=== PATIENT | male | born 1930 | race Caucasian/White ===

== ENCOUNTER 2017-12-25 14:38 | Observation (INO) ==
[2017-12-26 14:36] VITALS: BP 110/60
== END 2017-12-26 16:08 | disposition home or self-care (01) ==
LOC: N.ED 14:38 → N.EDINP 14:38 → N.5E 18:46
PROVIDERS: ADMIT Internal Medicine; ATTEND Internal Medicine

== ENCOUNTER 2018-01-25 14:08 | Inpatient (IN) ==
[2018-01-25 14:42] LABS: Basophils # 0.1 10*3/uL (0.0-0.2); Basophils % 0.7 % (0.0-0.8); Eosinophils # 0.3 10*3/uL (0.0-0.87); Eosinophils % 2.9 % (0.00-10.9); Hematocrit 37.2 VOL% (42.0-52.0); Hemoglobin 12.3 GM/DL (14.0-18.0); Immature Granulocytes % 0.3 %; Immature Granulocytes Absolute 0.03 #; Lymphocytes # 1.2 10*3/uL (1.4-4.0); Lymphocytes % 12.2 % (21.2-54.2); Mean Corpuscular HGB Conc 33.1 GM/DL (32-36); Mean Corpuscular Hemoglobin 30 PG (27-34); Mean Corpuscular Volume 91.4 FL (87-102); Mean Platelet Volume 10.8 FL (9.6-12.0); Monocytes # 0.9 10*3/uL (0.11-0.8); Neutrophils # 7.3 10*3/uL (1.4-7.4); Neutrophils % 74.9 % (38.7-73.9); Platelet Count 156 T/CUMM (130-400); Red Blood Count 4.07 MC/CUMM (3.8-5.5); Red Cell Distribution Width 15.5 % (9.3-17.3); White Blood Count 9.7 T/CUMM (4-12)
[2018-01-25 15:01] LABS: Albumin 3.4 G/DL (3.4-5.0); Bilirubin,Total 0.7 MG/DL (0.2-1.0); Calcium 8.9 MG/DL (8.5-10.1); Osmolality,Calculated 285.4 MOS/KG (273-304); Total Protein 6.8 G/DL (6.4-8.3)
[2018-01-25] MEDS ORDERED: ONDANSETRON 4 MG/2 ML VIAL IV STA (15:05)
[2018-01-25] MEDS ORDERED: SODIUM CHLORIDE 0.9% 500 ML IV STA (15:05)
[2018-01-25] MEDS ORDERED: PANTOPRAZOLE 40 MG VIAL IV STA (15:05)
[2018-01-25] MEDS ORDERED: METOCLOPRAMIDE 10 MG/2 ML VIAL IV STA (15:05)
[2018-01-25] MEDS ORDERED: LEVOFLOXACIN INJ 750 MG in PREMIX 1 EACH IV STA (15:05)
[2018-01-25] MEDS ORDERED: METOCLOPRAMIDE 10 MG/2 ML VIAL ONE (15:11)
[2018-01-25] MEDS ORDERED: LEVOFLOXACIN INJ 150 ML IV ONE (15:11)
[2018-01-25] MEDS ORDERED: PANTOPRAZOLE 40 MG VIAL IV ONE ×2 (15:12→21:41)
[2018-01-25] MEDS ORDERED: ONDANSETRON 4 MG/2 ML VIAL ONE (15:12)
[2018-01-25 15:17] LABS: Bilirubin,Urine Negative (Negative); Blood, Urine Negative (Negative); Glucose,Urine (UA) Negative (Negative); Ketones,Urine Negative (Negative); Mucus,Urine Occasional /LPF (Occasional); Nitrite,Urine Negative (Negative); Protein,Urine 30 MG/DL; RBC,Urine 4 /HPF (0-4); Urine Color Amber (Yellow); Urine Specific Gravity 1.013 (1.001-1.035); WBC,Urine 1 /HPF (0-6)
[2018-01-25 15:19] LABS: Apearance,Urine Slightly Hazy (Clear)
[2018-01-25 16:07] LABS: PT Patient Result 10.4 SECS; Partial Thromboplastin Time 25.8 SECS (0-40)
[2018-01-25] MEDS ORDERED: ONDANSETRON 4 MG/2 ML VIAL IV PRN (21:41)
[2018-01-25] MEDS ORDERED: GLUCAGON 1 MG VIAL IM PRN (21:41)
[2018-01-25] MEDS ORDERED: PROMETHAZINE 25 MG/1 ML VIAL IM PRN (21:41)
[2018-01-25] MEDS ORDERED: DEXTROSE 50% 25 GM/50 ML VIAL IV PRN (21:41)
[2018-01-25] MEDS: SODIUM CHLORIDE 0.9% 1,000 ML IV SCH (22:06)
[2018-01-25] MEDS ORDERED: LEVOFLOXACIN INJ 750 MG in PREMIX 1 EACH IV ONE (23:00)
[2018-01-26] MEDS: INSULIN LISPRO 100 UNIT/ML SUBCUT SCH ×4 (00:15→20:00)
[2018-01-26] MEDS: PANTOPRAZOLE INJ 200 MG in SODIUM CHLORIDE 0.9% 250 ML IV SCH (01:05)
[2018-01-26 05:31] LABS: Albumin 2.7 G/DL (3.4-5.0); Calcium 7.7 MG/DL (8.5-10.1); Osmolality,Calculated 281.4 MOS/KG (273-304); Potassium 3.7 MMOL/L (3.5-5.1); Total Protein 5.3 G/DL (6.4-8.3)
[2018-01-26 05:50] LABS: Risk Ratio 1.92; Thyroid Stimulating Hormone 2.47 uIU/ml (0.358-3.74); VLDL CHOLESTEROL 16.2 MG/DL
[2018-01-26 08:07] LABS: Basophils # 0.1 10*3/uL (0.0-0.2); Basophils % 1.1 % (0.0-0.8); Eosinophils # 0.3 10*3/uL (0.0-0.87); Hemoglobin 10.1 GM/DL (14.0-18.0); Immature Granulocytes % 0.5 %; Immature Granulocytes Absolute 0.03 #; Lymphocytes # 1.3 10*3/uL (1.4-4.0); Lymphocytes % 18.9 % (21.2-54.2); Mean Corpuscular HGB Conc 32.6 GM/DL (32-36); Mean Corpuscular Hemoglobin 30 PG (27-34); Monocytes # 0.8 10*3/uL (0.11-0.8); Monocytes % 12.3 % (1.7-12.7); Neutrophils # 4.1 10*3/uL (1.4-7.4); Neutrophils % 62.2 % (38.7-73.9); Platelet Count 125 T/CUMM (130-400); Red Blood Count 3.37 MC/CUMM (3.8-5.5); Red Cell Distribution Width 15.6 % (9.3-17.3); White Blood Count 6.6 T/CUMM (4-12)
[2018-01-26] MEDS: SODIUM CHLORIDE 0.9% 1,000 ML IV SCH (13:02)
[2018-01-26] MEDS: METOPROLOL SUCCINATE XL 25 MG TABLET PO SCH (16:43)
[2018-01-26] MEDS: hydroCHLOROthiazide 25 MG TABLET PO SCH (16:43)
[2018-01-26] MEDS: PANTOPRAZOLE 40 MG TABLET PO SCH (20:03)
[2018-01-27] MEDS: INSULIN LISPRO 100 UNIT/ML SUBCUT SCH ×4 (00:15→18:26)
[2018-01-27] MEDS: SODIUM CHLORIDE 0.9% 1,000 ML IV SCH ×2 (02:30→16:09)
[2018-01-27] MEDS: PANTOPRAZOLE 40 MG TABLET PO SCH ×2 (06:29→19:21)
[2018-01-27] MEDS: PANTOPRAZOLE INJ 200 MG in SODIUM CHLORIDE 0.9% 250 ML IV SCH (09:43)
[2018-01-27] MEDS: hydroCHLOROthiazide 25 MG TABLET PO SCH (12:07)
[2018-01-27] MEDS: METOPROLOL SUCCINATE XL 25 MG TABLET PO SCH (12:07)
[2018-01-27] MEDS: LEVOTHYROXINE 75 MCG TABLET PO SCH (12:07)
[2018-01-28 03:40] LABS: Alanine Aminotransferase 71 U/L (16-61); Albumin 2.4 G/DL (3.4-5.0); Alkaline Phosphatase 297 U/L (45-117); Aspartate Amino Transferase 51 U/L (0-37); Bilirubin,Indirect 0.2 MG/DL (0.0-1.0); Bilirubin,Total < 0.39 MG/DL (0.2-1.0); Total Protein 5.2 G/DL (6.4-8.3)
[2018-01-28] MEDS: INSULIN LISPRO 100 UNIT/ML SUBCUT SCH ×4 (05:14→19:02)
[2018-01-28] MEDS: SODIUM CHLORIDE 0.9% 1,000 ML IV SCH (06:07)
[2018-01-28] MEDS: LEVOTHYROXINE 75 MCG TABLET PO SCH ×2 (06:08→07:01)
[2018-01-28] MEDS: BISACODYL 5 MG TABLET PO SCH ×3 (08:50→21:00)
[2018-01-28] MEDS: PANTOPRAZOLE 40 MG TABLET PO SCH ×3 (08:50→19:06)
[2018-01-28] MEDS: hydroCHLOROthiazide 25 MG TABLET PO SCH (08:56)
[2018-01-28] MEDS: METOPROLOL SUCCINATE XL 25 MG TABLET PO SCH (08:56)
[2018-01-28] MEDS ORDERED: BISMUTH SUBSALICYLATE 30 ML/524 MG 240 ML/BOTTLE PO PRN (14:10)
[2018-01-28 14:23] LABS: Hepatitis A Ab IgM Quant 0.26 Index; Hepatitis A Ab IgM Result Negative (Negative); Hepatitis B Core IgM Quant < 0.05 Index; Hepatitis B Core IgM Result Negative (Negative); Hepatitis B Surface Ag Quant 0.37 Index; Hepatitis B Surface Ag Result Negative (Negative); Hepatitis C Virus Ab Quant 0.02 Index; Hepatitis C Virus Ab Result Negative (Negative)
[2018-01-28] MEDS ORDERED: POLYETHYLENE GLYCOL POWDER 255 GM BOTTLE PO ONE (18:00)
[2018-01-28] MEDS: EZETIMIBE 10 MG TABLET PO SCH (20:59)
[2018-01-28] MEDS ORDERED: MAGNESIUM CITRATE 300 ML BOTTLE PO ONE (21:00)
[2018-01-29] MEDS: INSULIN LISPRO 100 UNIT/ML SUBCUT SCH ×4 (01:13→18:58)
[2018-01-29] MEDS: BISACODYL 5 MG TABLET PO SCH (01:13)
[2018-01-29 02:43] LABS: Basophils # 0.1 10*3/uL (0.0-0.2); Basophils % 0.5 % (0.0-0.8); Eosinophils # 0.1 10*3/uL (0.0-0.87); Eosinophils % 0.5 % (0.00-10.9); Hematocrit 33.1 VOL% (42.0-52.0); Hemoglobin 11.3 GM/DL (14.0-18.0); Immature Granulocytes % 0.3 %; Immature Granulocytes Absolute 0.03 #; Lymphocytes # 0.9 10*3/uL (1.4-4.0); Lymphocytes % 9.4 % (21.2-54.2); Mean Corpuscular HGB Conc 34.1 GM/DL (32-36); Mean Corpuscular Hemoglobin 30 PG (27-34); Mean Platelet Volume 11.1 FL (9.6-12.0); Monocytes # 0.7 10*3/uL (0.11-0.8); Neutrophils # 7.9 10*3/uL (1.4-7.4); Neutrophils % 82.3 % (38.7-73.9); Platelet Count 149 T/CUMM (130-400); Red Blood Count 3.76 MC/CUMM (3.8-5.5); Red Cell Distribution Width 15.5 % (9.3-17.3)
[2018-01-29 02:49] LABS: White Blood Count 9.6 T/CUMM (4-12)
[2018-01-29 03:19] LABS: Calcium 8.3 MG/DL (8.5-10.1); Osmolality,Calculated 285.4 MOS/KG (273-304); Potassium 3.5 MMOL/L (3.5-5.1)
[2018-01-29 04:48] LABS: Albumin 2.6 G/DL (3.4-5.0); Bilirubin,Direct 0.41 MG/DL (0.0-0.20); Bilirubin,Indirect 0.6 MG/DL (0.0-1.0); Total Protein 5.5 G/DL (6.4-8.3)
[2018-01-29] MEDS ORDERED: NITROGLYCERIN SL 0.4 MG TABLET SL PRN (07:02)
[2018-01-29] MEDS ORDERED: ASPIRIN CHEW 81 MG TABLET PO ONE (07:02)
[2018-01-29] MEDS: MORPHINE 4 MG/1 ML VIAL IV PRN ×2 (07:21→17:03)
[2018-01-29] MEDS ORDERED: ALUM/MAG/SIMETH/LIDO VISC 1:1 30 ML BOTTLE PO ONE (08:00)
[2018-01-29] MEDS: SODIUM CHLORIDE 0.9% 1,000 ML IV SCH ×2 (08:23→20:40)
[2018-01-29] MEDS: PANTOPRAZOLE 40 MG TABLET PO SCH ×2 (08:30→19:03)
[2018-01-29] MEDS: LEVOTHYROXINE 75 MCG TABLET PO SCH (08:31)
[2018-01-29] MEDS: hydroCHLOROthiazide 25 MG TABLET PO SCH (08:38)
[2018-01-29] MEDS: METOPROLOL SUCCINATE XL 25 MG TABLET PO SCH (08:42)
[2018-01-29] MEDS ORDERED: POTASSIUM CHLORIDE RIDER 10 MEQ in PREMIX 1 EACH IV PRN (09:03)
[2018-01-29] MEDS ORDERED: DIAZEPAM 5 MG TABLET PO ONE (09:03)
[2018-01-29] MEDS ORDERED: MAGNESIUM SULF RIDER 2 GM in PREMIX 1 EACH IV PRN (09:03)
[2018-01-29] MEDS ORDERED: diphenhydrAMINE CAP 25 MG CAPSULE PO ONE (09:03)
[2018-01-29] MEDS ORDERED: MIDAZOLAM 2 MG/2 ML VIAL ONE ×2 (11:02→12:24)
[2018-01-29] MEDS ORDERED: LIDOCAINE 1% 20 ML VIAL ONE (11:02)
[2018-01-29] MEDS ORDERED: fentaNYL 100 MCG/2 ML VIAL ONE (11:02)
[2018-01-29] MEDS ORDERED: ENOXAPARIN 60 MG/0.6 ML SYRINGE ONE (11:58)
[2018-01-29] MEDS ORDERED: TIROFIBAN 5,000 MCG/100 ML PREMIX IV ONE (12:00)
[2018-01-29 12:05] LABS: CKMB % 9.7 %
[2018-01-29] MEDS ORDERED: TIROFIBAN 5,000 MCG/100 ML PREMIX IV SCH (12:07)
[2018-01-29] MEDS ORDERED: HYDROmorphone 2 MG/1 ML VIAL ONE (12:36)
[2018-01-29] MEDS ORDERED: TICAGRELOR 90 MG TABLET ONE (12:38)
[2018-01-29] MEDS ORDERED: ACETAMINOPHEN 325 MG TABLET PO PRN (12:46)
[2018-01-29] MEDS ORDERED: MORPHINE 10 MG/1 ML VIAL ONE (17:00)
[2018-01-29] MEDS ORDERED: HYDROmorphone 2 MG/1 ML VIAL IV PRN (18:27)
[2018-01-29] MEDS ORDERED: KETOROLAC 30 MG/1 ML VIAL IV ONE (18:27)
[2018-01-29] MEDS: TICAGRELOR 90 MG TABLET PO SCH (21:08)
[2018-01-29] MEDS: EZETIMIBE 10 MG TABLET PO SCH (21:08)
[2018-01-30] MEDS: INSULIN LISPRO 100 UNIT/ML SUBCUT SCH ×4 (01:03→18:02)
[2018-01-30 03:53] LABS: Basophils # 0.1 10*3/uL (0.0-0.2); Basophils % 0.5 % (0.0-0.8); Eosinophils # 0.1 10*3/uL (0.0-0.87); Eosinophils % 0.8 % (0.00-10.9); Hematocrit 31.4 VOL% (42.0-52.0); Hemoglobin 10.4 GM/DL (14.0-18.0); Immature Granulocytes % 0.6 %; Immature Granulocytes Absolute 0.07 #; Lymphocytes % 8.8 % (21.2-54.2); Mean Corpuscular HGB Conc 33.1 GM/DL (32-36); Mean Corpuscular Hemoglobin 29 PG (27-34); Mean Platelet Volume 11.5 FL (9.6-12.0); Monocytes # 1.6 10*3/uL (0.11-0.8); Monocytes % 13.1 % (1.7-12.7); Neutrophils # 9.1 10*3/uL (1.4-7.4); Neutrophils % 76.2 % (38.7-73.9); Platelet Count 143 T/CUMM (130-400); Red Blood Count 3.57 MC/CUMM (3.8-5.5); Red Cell Distribution Width 15.8 % (9.3-17.3); White Blood Count 11.9 T/CUMM (4-12)
[2018-01-30 04:29] LABS: CKMB % 9.3 %; Calcium 8.1 MG/DL (8.5-10.1); Osmolality,Calculated 284.5 MOS/KG (273-304); Potassium 3.7 MMOL/L (3.5-5.1)
[2018-01-30] MEDS: PANTOPRAZOLE 40 MG TABLET PO SCH ×2 (06:28→18:03)
[2018-01-30] MEDS: LEVOTHYROXINE 75 MCG TABLET PO SCH (06:28)
[2018-01-30 10:06] LABS: AFP Tumor < 1.3 NG/ML (0-8); Carcinoembryonic Antigen < 0.5 NG/ML (0.0-5.0)
[2018-01-30] MEDS: hydroCHLOROthiazide 25 MG TABLET PO SCH (10:52)
[2018-01-30] MEDS: ASPIRIN EC 81 MG TABLET PO SCH (10:52)
[2018-01-30] MEDS: TICAGRELOR 90 MG TABLET PO SCH ×2 (10:52→21:17)
[2018-01-30] MEDS: METOPROLOL SUCCINATE XL 25 MG TABLET PO SCH (10:52)
[2018-01-30] MEDS: ALBUTEROL/IPRATROPIUM 3 ML NEB RESP TX PRN (20:17)
[2018-01-30] MEDS ORDERED: FUROSEMIDE 40 MG/4 ML VIAL IV STA (20:34)
[2018-01-30] MEDS: EZETIMIBE 10 MG TABLET PO SCH (21:17)
[2018-01-30] MEDS: SODIUM CHLORIDE 0.9% 1,000 ML IV SCH (22:42)
[2018-01-31] MEDS: INSULIN LISPRO 100 UNIT/ML SUBCUT SCH ×4 (00:36→18:14)
[2018-01-31] MEDS: ALBUTEROL/IPRATROPIUM 3 ML NEB RESP TX PRN (02:20)
[2018-01-31 04:22] LABS: Basophils % 0.2 % (0.0-0.8); Eosinophils # 0.1 10*3/uL (0.0-0.87); Eosinophils % 0.6 % (0.00-10.9); Hematocrit 31.9 VOL% (42.0-52.0); Hemoglobin 10.9 GM/DL (14.0-18.0); Immature Granulocytes % 0.5 %; Immature Granulocytes Absolute 0.06 #; Lymphocytes # 1.4 10*3/uL (1.4-4.0); Lymphocytes % 10.5 % (21.2-54.2); Mean Corpuscular HGB Conc 34.2 GM/DL (32-36); Mean Corpuscular Hemoglobin 30 PG (27-34); Mean Corpuscular Volume 87.2 FL (87-102); Mean Platelet Volume 11.5 FL (9.6-12.0); Monocytes # 1.2 10*3/uL (0.11-0.8); Monocytes % 8.9 % (1.7-12.7); Neutrophils # 10.5 10*3/uL (1.4-7.4); Neutrophils % 79.3 % (38.7-73.9); Platelet Count 156 T/CUMM (130-400); Red Blood Count 3.66 MC/CUMM (3.8-5.5); Red Cell Distribution Width 15.9 % (9.3-17.3); White Blood Count 13.2 T/CUMM (4-12)
[2018-01-31 05:10] LABS: CKMB % 5.4 %; Calcium 8.5 MG/DL (8.5-10.1); Osmolality,Calculated 287.5 MOS/KG (273-304); Potassium 3.3 MMOL/L (3.5-5.1)
[2018-01-31] MEDS: PANTOPRAZOLE 40 MG TABLET PO SCH ×2 (06:18→21:13)
[2018-01-31] MEDS: LEVOTHYROXINE 75 MCG TABLET PO SCH (06:18)
[2018-01-31] MEDS: ASPIRIN EC 81 MG TABLET PO SCH (10:58)
[2018-01-31] MEDS: TICAGRELOR 90 MG TABLET PO SCH ×2 (10:58→21:13)
[2018-01-31] MEDS: METOPROLOL SUCCINATE XL 25 MG TABLET PO SCH (10:58)
[2018-01-31] MEDS: FUROSEMIDE 40 MG/4 ML VIAL IV SCH ×2 (10:59→16:24)
[2018-01-31] MEDS: ALBUTEROL/IPRATROPIUM 3 ML NEB RESP TX SCH ×4 (11:03→23:02)
[2018-01-31] MEDS: LEVOFLOXACIN INJ 750 MG in PREMIX 1 EACH IV SCH (11:04)
[2018-01-31] MEDS: POTASSIUM CHLORIDE 20 MEQ TABLET PO SCH (13:11)
[2018-01-31] MEDS: EZETIMIBE 10 MG TABLET PO SCH (21:13)
[2018-02-01] MEDS: INSULIN LISPRO 100 UNIT/ML SUBCUT SCH ×4 (00:25→18:21)
[2018-02-01] MEDS: ALBUTEROL/IPRATROPIUM 3 ML NEB RESP TX SCH ×2 (03:02→08:30)
[2018-02-01 04:42] LABS: Basophils % 0.4 % (0.0-0.8); Eosinophils # 0.3 10*3/uL (0.0-0.87); Eosinophils % 2.7 % (0.00-10.9); Hematocrit 32.1 VOL% (42.0-52.0); Hemoglobin 10.8 GM/DL (14.0-18.0); Immature Granulocytes % 0.6 %; Immature Granulocytes Absolute 0.07 #; Lymphocytes # 1.2 10*3/uL (1.4-4.0); Lymphocytes % 10.6 % (21.2-54.2); Mean Corpuscular HGB Conc 33.6 GM/DL (32-36); Mean Corpuscular Hemoglobin 30 PG (27-34); Mean Corpuscular Volume 88.4 FL (87-102); Mean Platelet Volume 10.9 FL (9.6-12.0); Monocytes # 1.2 10*3/uL (0.11-0.8); Monocytes % 10.5 % (1.7-12.7); Neutrophils # 8.5 10*3/uL (1.4-7.4); Neutrophils % 75.2 % (38.7-73.9); Platelet Count 165 T/CUMM (130-400); Red Blood Count 3.63 MC/CUMM (3.8-5.5); Red Cell Distribution Width 15.9 % (9.3-17.3); White Blood Count 11.3 T/CUMM (4-12)
[2018-02-01 05:05] LABS: Calcium 8.3 MG/DL (8.5-10.1); Osmolality,Calculated 296.3 MOS/KG (273-304); Potassium 3.2 MMOL/L (3.5-5.1)
[2018-02-01] MEDS: PANTOPRAZOLE 40 MG TABLET PO SCH ×2 (06:18→20:10)
[2018-02-01] MEDS: LEVOTHYROXINE 75 MCG TABLET PO SCH (06:18)
[2018-02-01] MEDS: ASPIRIN EC 81 MG TABLET PO SCH (10:10)
[2018-02-01] MEDS: POTASSIUM CHLORIDE 20 MEQ TABLET PO SCH (10:10)
[2018-02-01] MEDS: TICAGRELOR 90 MG TABLET PO SCH ×2 (10:10→20:10)
[2018-02-01] MEDS: METOPROLOL SUCCINATE XL 25 MG TABLET PO SCH (10:11)
[2018-02-01] MEDS: POTASSIUM CHLORIDE 20 MEQ TABLET PO PRN (10:11)
[2018-02-01] MEDS: amLODIPine 10 MG TABLET PO SCH (10:12)
[2018-02-01] MEDS: FUROSEMIDE 40 MG/4 ML VIAL IV SCH (10:19)
[2018-02-01] MEDS ORDERED: ALBUTEROL/IPRATROPIUM 3 ML NEB RESP TX PRN (10:48)
[2018-02-01] MEDS ORDERED: BENZOCAINE 10% ORAL GEL 7 GM TUBE TOP PRN (13:57)
[2018-02-01] MEDS: EZETIMIBE 10 MG TABLET PO SCH (20:10)
[2018-02-02] MEDS: INSULIN LISPRO 100 UNIT/ML SUBCUT SCH ×4 (00:48→17:48)
[2018-02-02 05:24] LABS: Basophils # 0.1 10*3/uL (0.0-0.2); Basophils % 0.7 % (0.0-0.8); Eosinophils # 0.6 10*3/uL (0.0-0.87); Eosinophils % 5.7 % (0.00-10.9); Hemoglobin 11.7 GM/DL (14.0-18.0); Immature Granulocytes % 0.8 %; Immature Granulocytes Absolute 0.08 #; Lymphocytes # 0.9 10*3/uL (1.4-4.0); Mean Corpuscular HGB Conc 34.4 GM/DL (32-36); Mean Corpuscular Hemoglobin 30 PG (27-34); Mean Corpuscular Volume 86.5 FL (87-102); Mean Platelet Volume 11.5 FL (9.6-12.0); Monocytes # 1.3 10*3/uL (0.11-0.8); Monocytes % 13.1 % (1.7-12.7); Neutrophils # 7.1 10*3/uL (1.4-7.4); Neutrophils % 70.7 % (38.7-73.9); Platelet Count 163 T/CUMM (130-400); Red Blood Count 3.93 MC/CUMM (3.8-5.5); Red Cell Distribution Width 15.7 % (9.3-17.3)
[2018-02-02] MEDS: LEVOTHYROXINE 75 MCG TABLET PO SCH (06:06)
[2018-02-02] MEDS: PANTOPRAZOLE 40 MG TABLET PO SCH ×2 (06:06→18:23)
[2018-02-02 06:40] LABS: Calcium 8.4 MG/DL (8.5-10.1); Potassium 3.4 MMOL/L (3.5-5.1)
[2018-02-02] MEDS: POTASSIUM CHLORIDE 20 MEQ TABLET PO PRN ×3 (06:49→15:59)
[2018-02-02] MEDS: TICAGRELOR 90 MG TABLET PO SCH ×2 (09:03→20:46)
[2018-02-02] MEDS: POTASSIUM CHLORIDE 20 MEQ TABLET PO SCH (09:03)
[2018-02-02] MEDS: amLODIPine 10 MG TABLET PO SCH (09:03)
[2018-02-02] MEDS: METOPROLOL SUCCINATE XL 25 MG TABLET PO SCH (09:03)
[2018-02-02] MEDS: ASPIRIN EC 81 MG TABLET PO SCH (09:04)
[2018-02-02] MEDS: FUROSEMIDE 20 MG TABLET PO SCH (09:04)
[2018-02-02] MEDS: LEVOFLOXACIN INJ 750 MG in PREMIX 1 EACH IV SCH (09:37)
[2018-02-02] MEDS: EZETIMIBE 10 MG TABLET PO SCH (20:46)
[2018-02-03] MEDS: INSULIN LISPRO 100 UNIT/ML SUBCUT SCH ×3 (00:33→11:42)
[2018-02-03 04:16] LABS: Basophils # 0.1 10*3/uL (0.0-0.2); Basophils % 0.7 % (0.0-0.8); Eosinophils # 0.6 10*3/uL (0.0-0.87); Eosinophils % 7.7 % (0.00-10.9); Hematocrit 30.9 VOL% (42.0-52.0); Hemoglobin 10.3 GM/DL (14.0-18.0); Immature Granulocytes % 0.7 %; Immature Granulocytes Absolute 0.06 #; Lymphocytes # 0.8 10*3/uL (1.4-4.0); Mean Corpuscular HGB Conc 33.3 GM/DL (32-36); Mean Corpuscular Hemoglobin 29 PG (27-34); Mean Platelet Volume 10.9 FL (9.6-12.0); Monocytes % 12.1 % (1.7-12.7); Neutrophils # 5.5 10*3/uL (1.4-7.4); Neutrophils % 68.8 % (38.7-73.9); Platelet Count 204 T/CUMM (130-400); Red Blood Count 3.55 MC/CUMM (3.8-5.5); Red Cell Distribution Width 15.7 % (9.3-17.3)
[2018-02-03 04:49] LABS: Calcium 8.7 MG/DL (8.5-10.1); Osmolality,Calculated 300.8 MOS/KG (273-304); Potassium 3.9 MMOL/L (3.5-5.1)
[2018-02-03] MEDS: LEVOTHYROXINE 75 MCG TABLET PO SCH (06:27)
[2018-02-03] MEDS: PANTOPRAZOLE 40 MG TABLET PO SCH (06:27)
[2018-02-03 08:28] VITALS: BP 109/59
[2018-02-03] MEDS: ASPIRIN EC 81 MG TABLET PO SCH (09:11)
[2018-02-03] MEDS: POTASSIUM CHLORIDE 20 MEQ TABLET PO SCH (09:11)
[2018-02-03] MEDS: METOPROLOL SUCCINATE XL 25 MG TABLET PO SCH (09:11)
[2018-02-03] MEDS: amLODIPine 10 MG TABLET PO SCH (09:11)
[2018-02-03] MEDS: TICAGRELOR 90 MG TABLET PO SCH (09:11)
[2018-02-03] MEDS: FUROSEMIDE 20 MG TABLET PO SCH (09:12)
[2018-02-03] MEDS ORDERED: CIPROFLOXACIN 500 MG TABLET PO ONE (12:23)
== END 2018-02-03 13:51 | disposition home health service (06) | DRG 246 ==
LOC: N.ED 14:08 → SUATTDRO 20:01 → N.EDINP 20:01 → N.4E 21:40 → N.TELES 01-29 18:27
PROVIDERS: ADMIT Internal Medicine; ATTEND Internal Medicine
PROC: CLCCHCL (ICD-10-PCS; 2018-01-29 11:45)

== ENCOUNTER 2018-02-05 18:03 | Inpatient (IN) ==
[2018-02-05] MEDS ORDERED: ASPIRIN 325 MG TABLET PO STA (18:21)
[2018-02-05] MEDS ORDERED: NITROGLYCERIN 2% OINT 1 INCH/GM PACK TOP STA (18:21)
[2018-02-05] MEDS ORDERED: FUROSEMIDE 100 MG/10 ML VIAL IV STA (18:21)
[2018-02-05] MEDS ORDERED: ALBUTEROL/IPRATROPIUM 3 ML NEB RESP TX STA (18:21)
[2018-02-05 18:36] LABS: Basophils # 0.1 10*3/uL (0.0-0.2); Basophils % 0.7 % (0.0-0.8); Eosinophils # 0.4 10*3/uL (0.0-0.87); Eosinophils % 2.7 % (0.00-10.9); Hematocrit 37.6 VOL% (42.0-52.0); Hemoglobin 12.2 GM/DL (14.0-18.0); Immature Granulocytes % 0.5 %; Immature Granulocytes Absolute 0.09 #; Lymphocytes # 1.7 10*3/uL (1.4-4.0); Lymphocytes % 10.1 % (21.2-54.2); Mean Corpuscular HGB Conc 32.4 GM/DL (32-36); Mean Corpuscular Hemoglobin 29 PG (27-34); Mean Platelet Volume 10.3 FL (9.6-12.0); Monocytes # 1.3 10*3/uL (0.11-0.8); Monocytes % 7.6 % (1.7-12.7); Neutrophils # 12.8 10*3/uL (1.4-7.4); Neutrophils % 78.4 % (38.7-73.9); Platelet Count 282 T/CUMM (130-400); Red Blood Count 4.18 MC/CUMM (3.8-5.5); Red Cell Distribution Width 15.7 % (9.3-17.3); White Blood Count 16.4 T/CUMM (4-12)
[2018-02-05] MEDS ORDERED: LEVOFLOXACIN INJ 750 MG in PREMIX 1 EACH IV STA (18:45)
[2018-02-05 18:59] LABS: Albumin 3.1 G/DL (3.4-5.0); Bilirubin,Total 0.4 MG/DL (0.2-1.0); Osmolality,Calculated 302.3 MOS/KG (273-304); Potassium 4.1 MMOL/L (3.5-5.1); Total Protein 6.9 G/DL (6.4-8.3)
[2018-02-05 19:34] LABS: Apearance,Urine CLOUDY (Clear); Bacteria,Urine Occasional /HPF (Few); Bilirubin,Urine Negative (Negative); Blood, Urine Negative (Negative); Glucose,Urine (UA) Negative (Negative); Ketones,Urine Negative (Negative); Nitrite,Urine Negative (Negative); Protein,Urine Negative; RBC,Urine 1 /HPF (0-4); Urine Color Amber (Yellow); Urine Specific Gravity 1.011 (1.001-1.035); Urine Urobilinogen < 2.0 EU/DL (0.2-1.0); WBC,Urine 8 /HPF (0-6)
[2018-02-05 19:35] LABS: Troponin I Only 0.446 NG/ML (0.00-0.045)
[2018-02-05 20:07] LABS: Partial Thromboplastin Time 25.4 SECS (0-40)
[2018-02-05 20:28] LABS: PT Patient Result 10.6 SECS
[2018-02-05] MEDS ORDERED: DOCUSATE SODIUM 100 MG CAPSULE PO PRN (20:47)
[2018-02-05] MEDS ORDERED: ACETAMINOPHEN 325 MG TABLET PO PRN (20:47)
[2018-02-05] MEDS ORDERED: ONDANSETRON 4 MG/2 ML VIAL IV PRN (20:47)
[2018-02-05] MEDS ORDERED: DEXTROSE 50% 25 GM/50 ML VIAL IV PRN (20:47)
[2018-02-05] MEDS ORDERED: GLUCAGON 1 MG VIAL IM PRN (20:47)
[2018-02-05] MEDS ORDERED: diphenhydrAMINE CAP 25 MG CAPSULE PO PRN (20:47)
[2018-02-05] MEDS ORDERED: LACTULOSE 20 GM/30 ML UDCUP PO PRN (20:47)
[2018-02-05] MEDS ORDERED: BISACODYL 5 MG TABLET PO PRN (20:47)
[2018-02-05] MEDS ORDERED: traZODone 50 MG TABLET PO PRN (20:47)
[2018-02-05] MEDS ORDERED: ENOXAPARIN 40 MG/0.4 ML SYRINGE SUBCUT SCH (21:00)
[2018-02-05] MEDS ORDERED: NITROGLYCERIN SL 0.4 MG TABLET SL PRN (21:04)
[2018-02-06 03:06] LABS: Basophils # 0.1 10*3/uL (0.0-0.2); Basophils % 0.5 % (0.0-0.8); Eosinophils # 0.2 10*3/uL (0.0-0.87); Eosinophils % 1.4 % (0.00-10.9); Hematocrit 30.5 VOL% (42.0-52.0); Hemoglobin 9.8 GM/DL (14.0-18.0); Immature Granulocytes % 0.7 %; Immature Granulocytes Absolute 0.09 #; Mean Corpuscular HGB Conc 32.1 GM/DL (32-36); Mean Corpuscular Hemoglobin 29 PG (27-34); Mean Platelet Volume 10.3 FL (9.6-12.0); Monocytes # 1.1 10*3/uL (0.11-0.8); Monocytes % 8.9 % (1.7-12.7); Neutrophils # 10.4 10*3/uL (1.4-7.4); Neutrophils % 80.5 % (38.7-73.9); Platelet Count 215 T/CUMM (130-400); Red Blood Count 3.35 MC/CUMM (3.8-5.5); Red Cell Distribution Width 15.4 % (9.3-17.3); White Blood Count 12.9 T/CUMM (4-12)
[2018-02-06 03:31] LABS: Osmolality,Calculated 299.7 MOS/KG (273-304); Potassium 3.6 MMOL/L (3.5-5.1)
[2018-02-06] MEDS: LEVOTHYROXINE 75 MCG TABLET PO SCH (06:25)
[2018-02-06] MEDS: PANTOPRAZOLE 40 MG TABLET PO SCH ×2 (06:30→18:16)
[2018-02-06] MEDS ORDERED: IMATINIB MESYLATE 200 MG PO SCH (08:00)
[2018-02-06] MEDS: METOPROLOL SUCCINATE XL 25 MG TABLET PO SCH (09:06)
[2018-02-06] MEDS: ENOXAPARIN 30 MG/0.3 ML SYRINGE SUBCUT SCH (09:07)
[2018-02-06] MEDS: ASPIRIN EC 81 MG TABLET PO SCH (09:07)
[2018-02-06] MEDS: EZETIMIBE 10 MG TABLET PO SCH (09:07)
[2018-02-06] MEDS: TICAGRELOR 90 MG TABLET PO SCH ×2 (09:07→21:37)
[2018-02-06] MEDS ORDERED: FUROSEMIDE 40 MG/4 ML VIAL ONE (09:11)
[2018-02-06] MEDS: POLYCARBOPHIL 625 MG TABLET PO SCH (09:13)
[2018-02-06] MEDS: LEVOFLOXACIN 500 MG TABLET PO SCH (14:07)
[2018-02-06] MEDS: POLYETHYLENE GLYCOL POWDER 17 GM PACK PO SCH (21:37)
[2018-02-07 06:15] LABS: Basophils # 0.1 10*3/uL (0.0-0.2); Basophils % 1.1 % (0.0-0.8); Eosinophils # 0.5 10*3/uL (0.0-0.87); Eosinophils % 5.5 % (0.00-10.9); Hemoglobin 10.7 GM/DL (14.0-18.0); Immature Granulocytes % 0.8 %; Immature Granulocytes Absolute 0.07 #; Lymphocytes # 0.9 10*3/uL (1.4-4.0); Lymphocytes % 11.3 % (21.2-54.2); Mean Corpuscular HGB Conc 33.4 GM/DL (32-36); Mean Corpuscular Hemoglobin 30 PG (27-34); Mean Corpuscular Volume 88.9 FL (87-102); Mean Platelet Volume 10.4 FL (9.6-12.0); Monocytes % 11.4 % (1.7-12.7); Neutrophils # 5.8 10*3/uL (1.4-7.4); Neutrophils % 69.9 % (38.7-73.9); Platelet Count 215 T/CUMM (130-400); Red Cell Distribution Width 15.2 % (9.3-17.3); White Blood Count 8.3 T/CUMM (4-12)
[2018-02-07 06:44] LABS: Calcium 8.4 MG/DL (8.5-10.1); Osmolality,Calculated 294.7 MOS/KG (273-304); Potassium 3.4 MMOL/L (3.5-5.1)
[2018-02-07] MEDS: LEVOTHYROXINE 75 MCG TABLET PO SCH (06:54)
[2018-02-07] MEDS: PANTOPRAZOLE 40 MG TABLET PO SCH ×2 (06:55→18:59)
[2018-02-07] MEDS: LEVOFLOXACIN 500 MG TABLET PO SCH (08:57)
[2018-02-07] MEDS: POLYCARBOPHIL 625 MG TABLET PO SCH (08:57)
[2018-02-07] MEDS: EZETIMIBE 10 MG TABLET PO SCH (08:57)
[2018-02-07] MEDS: METOPROLOL SUCCINATE XL 25 MG TABLET PO SCH (08:57)
[2018-02-07] MEDS: ASPIRIN EC 81 MG TABLET PO SCH (08:57)
[2018-02-07] MEDS: TICAGRELOR 90 MG TABLET PO SCH ×2 (08:57→21:15)
[2018-02-07] MEDS: ENOXAPARIN 30 MG/0.3 ML SYRINGE SUBCUT SCH (08:58)
[2018-02-07] MEDS: FUROSEMIDE 40 MG/4 ML VIAL IV SCH (08:58)
[2018-02-07 09:23] LABS: % Iron Saturation 9.5 % (18-50)
[2018-02-07] MEDS ORDERED: IRON SUCROSE 200 MG in SODIUM CHLORIDE 0.9% 100 ML IV ONE (10:20)
[2018-02-07] MEDS ORDERED: SODIUM CHLORIDE 0.9% 1,000 ML IV PRN (10:22)
[2018-02-07] MEDS: POLYETHYLENE GLYCOL POWDER 17 GM PACK PO SCH (21:15)
[2018-02-08 04:18] LABS: Basophils # 0.1 10*3/uL (0.0-0.2); Eosinophils # 0.4 10*3/uL (0.0-0.87); Hematocrit 35.2 VOL% (42.0-52.0); Hemoglobin 11.6 GM/DL (14.0-18.0); Immature Granulocytes % 0.8 %; Immature Granulocytes Absolute 0.07 #; Lymphocytes # 0.9 10*3/uL (1.4-4.0); Lymphocytes % 9.8 % (21.2-54.2); Mean Corpuscular Hemoglobin 29 PG (27-34); Mean Corpuscular Volume 88.7 FL (87-102); Mean Platelet Volume 10.2 FL (9.6-12.0); Monocytes # 1.1 10*3/uL (0.11-0.8); Monocytes % 12.1 % (1.7-12.7); Neutrophils # 6.3 10*3/uL (1.4-7.4); Neutrophils % 71.3 % (38.7-73.9); Platelet Count 219 T/CUMM (130-400); Red Blood Count 3.97 MC/CUMM (3.8-5.5); Red Cell Distribution Width 14.8 % (9.3-17.3); White Blood Count 8.9 T/CUMM (4-12)
[2018-02-08 04:53] LABS: Calcium 8.2 MG/DL (8.5-10.1); Osmolality,Calculated 294.7 MOS/KG (273-304); Potassium 3.7 MMOL/L (3.5-5.1)
[2018-02-08] MEDS: LEVOTHYROXINE 75 MCG TABLET PO SCH (06:31)
[2018-02-08] MEDS: PANTOPRAZOLE 40 MG TABLET PO SCH ×2 (06:31→20:10)
[2018-02-08] MEDS: POTASSIUM CHLORIDE 20 MEQ TABLET PO PRN (06:39)
[2018-02-08] MEDS: METOPROLOL SUCCINATE XL 25 MG TABLET PO SCH (08:57)
[2018-02-08] MEDS: EZETIMIBE 10 MG TABLET PO SCH (08:57)
[2018-02-08] MEDS: POLYCARBOPHIL 625 MG TABLET PO SCH (08:57)
[2018-02-08] MEDS: TICAGRELOR 90 MG TABLET PO SCH ×2 (08:58→20:10)
[2018-02-08] MEDS: FUROSEMIDE 40 MG/4 ML VIAL IV SCH (08:59)
[2018-02-08] MEDS: LEVOFLOXACIN 500 MG TABLET PO SCH (08:59)
[2018-02-08] MEDS: ASPIRIN EC 81 MG TABLET PO SCH (08:59)
[2018-02-08] MEDS: ENOXAPARIN 30 MG/0.3 ML SYRINGE SUBCUT SCH (08:59)
[2018-02-08] MEDS: POLYETHYLENE GLYCOL POWDER 17 GM PACK PO SCH (20:10)
[2018-02-08] MEDS: DOXYCYCLINE HYCLATE 100 MG CAPSULE PO SCH (20:15)
[2018-02-09 04:29] LABS: Basophils # 0.1 10*3/uL (0.0-0.2); Basophils % 0.7 % (0.0-0.8); Eosinophils # 0.4 10*3/uL (0.0-0.87); Hematocrit 35.5 VOL% (42.0-52.0); Hemoglobin 11.6 GM/DL (14.0-18.0); Immature Granulocytes % 0.7 %; Immature Granulocytes Absolute 0.06 #; Lymphocytes # 0.9 10*3/uL (1.4-4.0); Lymphocytes % 10.5 % (21.2-54.2); Mean Corpuscular HGB Conc 32.7 GM/DL (32-36); Mean Corpuscular Hemoglobin 30 PG (27-34); Mean Corpuscular Volume 90.3 FL (87-102); Mean Platelet Volume 10.2 FL (9.6-12.0); Monocytes # 0.9 10*3/uL (0.11-0.8); Monocytes % 10.2 % (1.7-12.7); Neutrophils # 6.4 10*3/uL (1.4-7.4); Neutrophils % 73.9 % (38.7-73.9); Platelet Count 213 T/CUMM (130-400); Red Blood Count 3.93 MC/CUMM (3.8-5.5); Red Cell Distribution Width 14.7 % (9.3-17.3); White Blood Count 8.7 T/CUMM (4-12)
[2018-02-09 05:05] LABS: Calcium 8.2 MG/DL (8.5-10.1); Osmolality,Calculated 294.7 MOS/KG (273-304); Potassium 3.3 MMOL/L (3.5-5.1)
[2018-02-09] MEDS: LEVOTHYROXINE 75 MCG TABLET PO SCH (06:42)
[2018-02-09] MEDS: PANTOPRAZOLE 40 MG TABLET PO SCH (06:42)
[2018-02-09] MEDS: METOPROLOL SUCCINATE XL 25 MG TABLET PO SCH (10:26)
[2018-02-09] MEDS: POLYCARBOPHIL 625 MG TABLET PO SCH (10:26)
[2018-02-09] MEDS: DOXYCYCLINE HYCLATE 100 MG CAPSULE PO SCH (10:26)
[2018-02-09] MEDS: ASPIRIN EC 81 MG TABLET PO SCH (10:27)
[2018-02-09] MEDS: POTASSIUM CHLORIDE 20 MEQ TABLET PO PRN ×2 (10:27→12:49)
[2018-02-09] MEDS: ENOXAPARIN 30 MG/0.3 ML SYRINGE SUBCUT SCH (10:27)
[2018-02-09] MEDS: EZETIMIBE 10 MG TABLET PO SCH (10:27)
[2018-02-09] MEDS: TICAGRELOR 90 MG TABLET PO SCH (10:27)
[2018-02-09] MEDS: FUROSEMIDE 40 MG/4 ML VIAL IV SCH (10:43)
[2018-02-09 12:14] VITALS: BP 117/58
== END 2018-02-09 13:54 | disposition home or self-care (01) | DRG 280 ==
LOC: N.ED 18:03 → N.EDINP 20:47 → N.TELEN 21:59
PROVIDERS: ADMIT Internal Medicine; ATTEND Internal Medicine